=== PATIENT | female | born 1975 | race Caucasian/White ===

== ENCOUNTER 2018-01-16 05:12 | Inpatient (IN) | payer OTHER ==
[~2018-01-16] VITALS: Ht 162.6 cm; Wt 70.0 kg
[2018-01-16] MEDS ORDERED: OXYTOCIN 30U/ 0.9% NaCL 500ML 500 ML ONE ×2 (05:39→17:45)
[2018-01-16] MEDS ORDERED: NEWBORN KIT ONE (05:40)
[2018-01-16] MEDS ORDERED: OXYTOCIN 30U/ 0.9% NaCL 500ML 500 ML IV ONE (05:42)
[2018-01-16] MEDS: D5%-LACTATED RINGERS 1,000 ML IV SCH ×3 (05:42→21:42)
[2018-01-16] MEDS ORDERED: OXYTOCIN 30U/ 0.9% NaCL 500ML 500 ML IV PRN (05:42)
[2018-01-16] MEDS ORDERED: FENTANYL PF 100 MCG/2ML IV PRN (06:00)
[2018-01-16] MEDS ORDERED: FENTANYL PF 100 MCG/2ML IVPush PRN (06:00)
[2018-01-16] MEDS ORDERED: SODIUM CITRATE/CITRIC ACID 30 ML UDC PO PRN (06:00)
[2018-01-16] MEDS: PLEASE ENTER HEIGHT AND WEIGHT MC SCH ×3 (06:00→22:00)
[2018-01-16] MEDS ORDERED: METOCLOPRAMIDE 5 MG/ML, 2ML IVPush PRN (06:00)
[2018-01-16] MEDS ORDERED: PENICILLIN GK 5,000,000 UNITS in DEXTROSE 5% 100 ML IVPB ONE (06:00)
[2018-01-16] MEDS: LACTATED RINGERS 1,000 ML IV SCH ×5 (06:09→21:48)
[2018-01-16 06:21] LABS: BASOPHILS # (AUTO) 0.04 x10^3/uL (0-0.1); BASOPHILS % (AUTO) 0 % (0-1); EOSINOPHILS # (AUTO) 0.15 x10^3/uL (0-0.4); EOSINOPHILS % (AUTO) 1 % (1-7); LYMPHOCYTES # (AUTO) 1.93 x10^3/uL (1-3.4); LYMPHOCYTES % (AUTO) 18 % (22-44); MD NO; MEAN CORPUSCULAR HEMOGLOBIN 32.8 pg (27.0-34.8); MEAN CORPUSCULAR HGB CONC 34.5 g/dL (32.4-35.8); MEAN CORPUSCULAR VOLUME 95.3 fL (80-100); MEAN PLATELET VOLUME 10.9 fL (7.4-10.4); MONOCYTES # (AUTO) 0.76 x10^3/uL (0.2-0.8); MONOCYTES % (AUTO) 7 % (2-9); NEUTROPHILS # (AUTO) 8.02 x10^3/uL (1.8-6.8); NEUTROPHILS % (AUTO) 74 % (42-75); PLATELET COUNT 164 x10^3/uL (130-400); RED BLOOD COUNT 4.14 x10^6/uL (3.82-5.3); RED CELL DISTRIBUTION WIDTH 12.4 % (9.6-15.2)
[2018-01-16] MEDS ORDERED: FENTANYL/BUPIV./NS/PF 250 ML EPIDCONT SCH ×2 (09:01→13:48)
[2018-01-16] MEDS ORDERED: FENTANYL PF 500 MCG, BUPIVACAINE/PF 0.5%, 30ML 62.5 ML in SODIUM CHLORIDE 0.9% 177.5 ML EPIDCONT SCH (09:30)
[2018-01-16] MEDS: PENICILLIN GK 2,500,000 UNITS in DEXTROSE 5% 100 ML IVPB SCH ×4 (10:56→22:30)
[2018-01-16] MEDS ORDERED: BUPIVACAINE 0.25% ONE ×2 (13:59→14:23)
[2018-01-16] MEDS ORDERED: EPHEDRINE 50 MG/ML, 1ML IVPush PRN (14:00)
[2018-01-16] MEDS ORDERED: LACTATED RINGERS 1,000 ML IVBOLUS ONE (14:00)
[2018-01-16] MEDS ORDERED: LACTATED RINGERS 1,000 ML IVBOLUS PRN (14:00)
[2018-01-16] MEDS ORDERED: NALOXONE 0.4 MG/ML, 1ML IVPush PRN (14:00)
[2018-01-16] MEDS ORDERED: FENTANYL/BUPIV./NS/PF 250 ML EPIDCONT ONE (14:23)
[2018-01-16] MEDS ORDERED: MISOPROSTOL 200 MCG TABLET ONE (16:54)
[2018-01-16] MEDS ORDERED: ONDANSETRON 2MG/ML, 2ML IV PRN (17:30)
[2018-01-16] MEDS ORDERED: OXYcodone/APAP 5/325MG TABLET PO PRN (17:30)
[2018-01-16] MEDS ORDERED: METHYLERGONOVINE 0.2 MG/ML IM PRN (17:30)
[2018-01-16] MEDS ORDERED: ACETAMINOPHEN 325 MG TABLET PO PRN ×2 (17:30)
[2018-01-16] MEDS ORDERED: MISOPROSTOL 200 MCG TABLET PR PRN (17:30)
[2018-01-16] MEDS: OXYTOCIN 30U/ 0.9% NaCL 500ML 500 ML IV SCH (17:50)
[2018-01-16] MEDS ORDERED: IBUPROFEN 600 MG TABLET ONE (18:02)
[2018-01-16] MEDS ORDERED: OXYcodone/APAP 5/325MG TABLET ONE (18:03)
[2018-01-16] MEDS: IBUPROFEN 600 MG TABLET PO PRN (18:04)
[2018-01-16] MEDS: OXYcodone/APAP 5/325MG TABLET PO PRN ×2 (18:04→22:43)
[2018-01-16 21:15] VITALS: BP 139/89
[2018-01-16 22:00] VITALS: BP 100/62
[2018-01-16] MEDS: DOCUSATE 100 MG CAPSULE PO PRN (22:43)
[2018-01-17] VITALS: BP 108/66
[2018-01-17] MEDS: PENICILLIN GK 2,500,000 UNITS in DEXTROSE 5% 100 ML IVPB SCH ×2 (02:30→06:30)
[2018-01-17] MEDS: OXYTOCIN 30U/ 0.9% NaCL 500ML 500 ML IV SCH ×3 (03:09→23:09)
[2018-01-17] MEDS: OXYcodone/APAP 5/325MG TABLET PO PRN (03:28)
[2018-01-17 03:31] VITALS: BP 100/62
[2018-01-17] MEDS: LACTATED RINGERS 1,000 ML IV SCH ×2 (05:42→05:48)
[2018-01-17] MEDS: D5%-LACTATED RINGERS 1,000 ML IV SCH (05:42)
[2018-01-17] MEDS: PLEASE ENTER HEIGHT AND WEIGHT MC SCH (06:00)
[2018-01-17 06:15] LABS: BASOPHILS # (AUTO) 0.02 x10^3/uL (0-0.1); BASOPHILS % (AUTO) 0 % (0-1); EOSINOPHILS # (AUTO) 0.18 x10^3/uL (0-0.4); EOSINOPHILS % (AUTO) 2 % (1-7); LYMPHOCYTES # (AUTO) 1.88 x10^3/uL (1-3.4); LYMPHOCYTES % (AUTO) 16 % (22-44); MD NO; MEAN CORPUSCULAR HEMOGLOBIN 32.7 pg (27.0-34.8); MEAN CORPUSCULAR HGB CONC 34.1 g/dL (32.4-35.8); MEAN CORPUSCULAR VOLUME 95.8 fL (80-100); MEAN PLATELET VOLUME 10.8 fL (7.4-10.4); MONOCYTES # (AUTO) 0.56 x10^3/uL (0.2-0.8); MONOCYTES % (AUTO) 5 % (2-9); NEUTROPHILS # (AUTO) 8.93 x10^3/uL (1.8-6.8); NEUTROPHILS % (AUTO) 77 % (42-75); PLATELET COUNT 156 x10^3/uL (130-400); RED BLOOD COUNT 3.73 x10^6/uL (3.82-5.3); RED CELL DISTRIBUTION WIDTH 12.4 % (9.6-15.2)
[2018-01-17] MEDS: IBUPROFEN 600 MG TABLET PO PRN ×3 (07:19→19:31)
[2018-01-17 07:45] VITALS: BP 121/70
[2018-01-17] MEDS: PRENATAL VIT/IRON/FA 1 EACH TABLET PO SCH (09:00)
[2018-01-17 12:00] VITALS: BP 121/70
[2018-01-17] MEDS: DOCUSATE 100 MG CAPSULE PO PRN (19:31)
[2018-01-17 19:46] VITALS: BP 112/68
[2018-01-18 07:55] VITALS: BP 108/71
[2018-01-18] MEDS: PRENATAL VIT/IRON/FA 1 EACH TABLET PO SCH (09:00)
[2018-01-18] MEDS: OXYTOCIN 30U/ 0.9% NaCL 500ML 500 ML IV SCH (09:09)
[2018-01-18] MEDS ORDERED: IBUP-1222 PO (10:09)
[2018-01-18] MEDS: IBUPROFEN 600 MG TABLET PO PRN (11:27)
== END 2018-01-18 16:20 | disposition home or self-care (01) | DRG 807 ==
LOC: LDIP 05:12 → 2NW 20:52
PROVIDERS: ADMIT Obstetrics & Gynecology; ATTEND Obstetrics & Gynecology
PROC: 10E0XZZ Delivery of Products of Conception, External Approach (ICD-10-PCS; principal; 2018-01-16)
PROC: 10907ZC Drainage of Amniotic Fluid, Therapeutic from Products of Conception, Via Natural or Artificial Opening (ICD-10-PCS; 2018-01-16)
PROC: 0UQMXZZ Repair Vulva, External Approach (ICD-10-PCS; 2018-01-16)
PROC: 3E0R3BZ Introduction of Anesthetic Agent into Spinal Canal, Percutaneous Approach (ICD-10-PCS; 2018-01-16)
PROC: 00HU33Z Insertion of Infusion Device into Spinal Canal, Percutaneous Approach (ICD-10-PCS; 2018-01-16)
DX: O99.824 Streptococcus B carrier state complicating childbirth (principal); Z37.0 Single live birth; O69.81X0 Labor and delivery complicated by cord around neck, without compression, not applicable or unspecified; O48.0 Post-term pregnancy; Z3A.41 41 weeks gestation of pregnancy; O70.0 First degree perineal laceration during delivery; Z3A.37 37 weeks gestation of pregnancy
CPT/HCPCS: 36415; 85025; 86850; 86900; G0378; J2540; J3490; J2590; J3010; J7120